=== PATIENT | male | born 1990 | race Caucasian/White ===

== ENCOUNTER 2016-08-21 09:24 | Emergency (ER) | payer SELFPAY ==
[~2016-08-21] VITALS: Ht 172.7 cm; Wt 102.3 kg
[~2016-08-21 09:24] MED LIST: NOCURR
[2016-08-21] MEDS ORDERED: ONDANSETRON HCL 4 MG TABLET PO ONE (10:00)
[2016-08-21 11:04] VITALS: BP 121/69
== END 2016-08-21 11:36 | disposition home or self-care (01) ==
LOC: EMS 09:26
DX: R11.2 Nausea with vomiting, unspecified (principal); F14.10 Cocaine abuse, uncomplicated; F10.10 Alcohol abuse, uncomplicated; K21.9 Gastro-esophageal reflux disease without esophagitis; Y90.9 Presence of alcohol in blood, level not specified
CPT/HCPCS: 99282; Q0162

== ENCOUNTER 2019-01-31 02:39 | Emergency (ER) | payer SELFPAY ==
[~2019-01-31] VITALS: Ht 172.7 cm; Wt 102.3 kg
[2019-01-31 04:23] LABS: RAPID GROUP A STREP NEGATIVE (NEGATIVE)
[2019-01-31 04:35] LABS: INFLUENZA TYPE A NEGATIVE FOR TYPE A (NEGATIVE); INFLUENZA TYPE B POSITIVE FOR TYPE B (NEGATIVE)
[2019-01-31] MEDS ORDERED: DEXAMETHASONE 4 MG TABLET PO ONE (04:45)
[2019-01-31 05:22] VITALS: BP 121/76
== END 2019-01-31 05:24 | disposition home or self-care (01) ==
LOC: EMS 02:40
DX: J06.9 Acute upper respiratory infection, unspecified (principal); K21.9 Gastro-esophageal reflux disease without esophagitis
CPT/HCPCS: 87430; 87804; 99283; J8540